=== PATIENT | female | born 1965 | race Caucasian/White ===

== ENCOUNTER → 2017-05-28 | Outpatient (CLI) | payer MEDICARE | LOC: RAD 11:24 | DX: M81.0 Age-related osteoporosis without current pathological fracture (principal) ==

== ENCOUNTER → 2017-06-10 | Day surgery (SDC) | payer MEDICARE ==
[~2017-06-10] MED LIST: ALENDRONATE SOD70 M1 PO; GOOD NEIGHBOR L10 MG PO; OYSTER SHELL C500 M4 PO; VITAMIN D-32000 UNIT PO
--- NOTE | ~2017-06-10 | PROC NOTE ---
[place], [place] PROCEDURE NOTE NAME: ROBER SOLITARIO UNIT #: [id number] ROOM: DOCTOR: DENIS ARIZMENDI MD BIRTHDATE: [birth year] DOS: 06/10/2017 PREOPERATIVE DIAGNOSIS: Screening examination. POSTOPERATIVE DIAGNOSIS: Screening examination. PROCEDURE: Colonoscopy. ENDOSCOPIST: Denis Arizmendi M.D. COSTUME MISTRESS: MS3. ANESTHESIA: MAC. INDICATIONS: This is a 51-year-old lady here for a screening examination. The procedure and its complications were explained to the patient in detail preoperatively. Complications that were discussed included but were not limited to, bleeding, colon perforation, missed lesions and prolonged pain. She agreed to proceed. DESCRIPTION OF PROCEDURE: After identifying the patient, the patient was brought to the endoscopy suite and placed in the left lateral position. After time-out procedure was called, IV sedation was administered by the anesthesia team. A digital rectal exam was performed, which was within normal limits. An adult colonoscope was now introduced into the anal canal and advanced sequentially into the rectum, sigmoid colon, descending colon, transverse colon, ascending colon up to the cecum. Upon reaching the cecum, the scope was withdrawn. Total withdrawal time was 6 minutes and 30 seconds. There were no obvious lesions seen in the entire colon. After the scope was withdrawn, the patient was taken to the recovery room in a stable fashion. There were no complications. Dr. Denis Arizmendi, the attending endoscopist, was present throughout the operating case. Based on these findings, the patient is recommended another colonoscopy in 10 years or sooner if she had any new symptoms. Denis Arizmendi MD CM:PROCNOTE:PROCEDURE NOTE [id number] DENIS ARIZMENDI MD
[2017-06-10 08:13] VITALS: BP 130/88
[2017-06-10 09:12] VITALS: BP 97/55
[2017-06-10 09:27] VITALS: BP 108/64
[2017-06-10 09:42] VITALS: BP 130/85
[2017-06-10 09:53] VITALS: BP 118/90
== END | disposition home or self-care (01) ==
LOC: SDC 06-08 14:45
DX: Z12.11 Encounter for screening for malignant neoplasm of colon (principal)
CPT/HCPCS: 00810; G0121